=== PATIENT | female | born 1985 | race Caucasian/White ===

== ENCOUNTER → 2016-12-07 | Outpatient (CLI) | payer OTHER | END | disposition home or self-care (01) | LOC: LABWHC1 10:01 | PROVIDERS: ATTEND Obstetrics & Gynecology | DX: Z34.90 Encounter for supervision of normal pregnancy, unspecified, unspecified trimester (principal); Z3A.00 Weeks of gestation of pregnancy not specified | CPT/HCPCS: 36415; 84702 ==

== ENCOUNTER → 2017-05-03 | Outpatient (CLI) | payer OTHER ==
[2017-05-03 10:56] LABS: HCT 42.5 % (34.0-46.0); HGB 14.5 gm/dL (11.4-16.0); MCH 27.6 pg (25.0-35.0); MCHC 34.1 g/dL (31.0-37.0); Mean Platelet Volume 7.1; Platelet Count 327 k/uL (150-450); RBC 5.25 m/uL (3.80-5.40); RDW 12.6 % (11.5-15.5); WBC 7.9 k/uL (3.8-10.6)
[2017-05-03 11:19] LABS: Glucose 87 mg/dL (74-99)
--- NOTE | 2017-05-03 12:37 | US ---
EXAMINATION TYPE: US OB <= 14 wk fetus DATE OF EXAM: 05/03/2017 COMPARISON: NONE CLINICAL HISTORY: 31-year-old female Z36 confirm dates. early OB EXAM PERFORMED: OB TA FINDINGS: EXAM MEASUREMENTS: GESTATIONAL AGE / DATING Physician Established: (9 weeks/1 days) EDC: 12/05/2017 Dates by LMP: ( 9 weeks/1 days) EDC: 12/05/2017 Dates by First Scan: No previous this is first scan Dates by Current Scan for: (8 weeks/2 days (+/- 5 days) EDC: 12/11/2017 MATERNAL ANATOMY Uterus: 10.9 x 6.6 x 7.3cm Right Ovary: 2.3 x 1.7 x 1.1 Left Ovary: 2.7 x 2.6 x 1.9 Post CDS / Adnexa: wnl Presence of free fluid: no Presence of corpus luteal cyst: yes - left ovary = 2.1cm Presence of subchorionic bleed: no GESTATION / SURVEY CRL: 1.8 (8 weeks/2 days) MSD: wnl Yolk Sac (normal less than 6mm): 0.3 Heart Rate: 185 bpm, mildly elevated. Rhythm: Normal IUP: Viable IUP Date of LMP: 02/28/2017 Beta HcG (if available): not available IMPRESSION: 1. Single live intrauterine with estimated gestational age of 9 weeks 1 day by LMP. Current ultrasound biometry by crown-rump length is smaller and just barely discordant (8 weeks 2 days). 2. Given mild tachycardia, consider short interval follow-up. 3. Otherwise, complete survey recommended at 18-20 weeks.
== END | disposition home or self-care (01) ==
LOC: RADUSWWP 10:08
PROVIDERS: ATTEND Obstetrics & Gynecology
DX: O76 Abnormality in fetal heart rate and rhythm complicating labor and delivery (principal); Z3A.08 8 weeks gestation of pregnancy
CPT/HCPCS: 76801; 82565; 82947; 85027; 86762; 86780; 86850; 86900; 86901; 87340

== ENCOUNTER 2017-11-12 20:31 | Outpatient (CLI) | payer OTHER ==
[2017-11-12 22:54] VITALS: BP 113/64; PULSE 96; RESP 16; TEMP 97.4
--- NOTE | 2017-11-13 09:25 | P.MSEPDOC ---
Presenting Problems - Arrival Data Date of Arrival on Unit: 11/12/17 Time of Arrival on Unit: 20:31 Mode of Transport: Ambulatory - Complaint OB-Reason for Admission/Chief Complaint: Possible Onset of Labor Medical History - Information : 4 Para: 3 Term: 3 : 0 Abortions: Spontaneous or Elective: 0 Number of Living Children: 3 - Gestational Age Gestational Age by REYNALDO (wks/days): 36 Weeks and 5 Days Review of Systems - Review of Systems Constitutional: No problems Breast: No problems ENT: No problems Cardiovascular: No problems Respiratory: No problems Gastrointestinal: No problems Genitourinary: No problems Musculoskeletal: No problems Neurological: No problems Skin: No problems Vital Signs - Temperature Temperature: 97.4 F Temperature Source: Temporal Artery Scan - Pulse Right Brachial Pulse Rate: 96 Pulse Assessment Method: Automatic Cuff - Respirations Respiratory Rate: 16 Oxygen Delivery Method: Room Air - Blood Pressure Right Arm Blood Pressure: 113/64 Blood Pressure Mean: 80 Blood Pressure Source: Automatic Cuff Medical Screen Scoring (Pre) - Cervical Exam Dilation: 1-3 cm = 1 Membranes: Intact - Uterine Contractions Frequency: > 5 minutes apart = 1 Duration: N/A Intensity: N/A - Maternal Vital Signs Maternal Temperature: N/A Maternal Blood Pressure: N/A Signs of Preeclampsia: N/A Maternal Respirations: N/A - Pain Assessment Pain Location and Character: Abdomen Pain Scale Used: Numeric (1 - 10) Pain Intensity: 3 Pain Description: Cramping Pain Frequency: Intermittent Pain Duration Units: Minutes Pain Behavior: Facial Grimacing Pain Aggravating Factors: Contractions - Total Score Total Score (Pre): 2 - Level of Risk Level of Risk: Low (0-5) Physician Notification (Pre) - Physician Notified Physician Notified Date: 11/12/17 Physician Notified Time: 22:44 Physician/Practitioner Notifed:: Dr. Henriquez Spoke With: Dr. Henriquez New Order Received: Yes - Notification Comment Comment: Dr. Henriquez called and given report on pt in triage. Pt c/o. VS wnl. Vag exam of 260/-2 with no change after 2 hours. Reactive nst. Orders recieved to d/c pt to home. Disposition - Disposition OB Disposition: Discharge to home Discharge Date: 11/12/17 Discharge Time: 22:50 I agree with the RN Medical Screening Exam: Yes Risk & Benefit of care provided described in d/c instruction: Yes Diagnosis: FALSE LABOR BEFORE 37 COMPLETED WEEKS OF GEST, THIRD TRI
== END 2017-11-12 22:54 | disposition home or self-care (01) ==
LOC: FBPOP 20:31
PROVIDERS: ATTEND Obstetrics & Gynecology
DX: O47.03 False labor before 37 completed weeks of gestation, third trimester (principal); Z3A.36 36 weeks gestation of pregnancy
CPT/HCPCS: 59025; G0463; 99213

== ENCOUNTER 2017-11-29 06:10 | Inpatient (IN) | payer OTHER ==
[2017-11-29] MEDS ORDERED: LIDOCAINE 0.5% (PF) 5 MG/ML (50 ML SDV) SQ PRN (06:32)
[2017-11-29] MEDS ORDERED: OXYTOCIN 20 UNITS/1000 ML NS 1,000 ML IV SCH ×2 (06:32→12:49)
[2017-11-29] MEDS ORDERED: CARBOPROST TROMETHAMINE 250 MCG/ML 1 ML AMP IM PRN (06:32)
[2017-11-29] MEDS ORDERED: OXYTOCIN 10 UNIT/ML 1 ML VIAL IM PRN (06:32)
[2017-11-29] MEDS ORDERED: METHYLERGONOVINE 0.2 MG/ML 1 ML AMP IM PRN (06:32)
[2017-11-29] MEDS ORDERED: TERBUTALINE 1 MG/ML VIAL SQ PRN (06:32)
[2017-11-29 06:52] LABS: Basophils % (A) 0 %; Eosinophils # (A) 0.2 k/uL (0-0.7); Eosinophils % (A) 4 %; HCT 38.4 % (34.0-46.0); Lymphocytes # (A) 1.4 k/uL (1.0-4.8); Lymphocytes % (A) 26 %; MCH 28.1 pg (25.0-35.0); MCHC 33.7 g/dL (31.0-37.0); MCV 83.3 fL (80.0-100.0); Monocytes # (A) 0.2 k/uL (0-1.0); Monocytes % (A) 4 %; Neutrophils # (A) 3.5 k/uL (1.3-7.7); Neutrophils % (A) 64 %; Platelet Count 199 k/uL (150-450); RBC 4.61 m/uL (3.80-5.40); RDW 13.4 % (11.5-15.5); WBC 5.4 k/uL (3.8-10.6)
--- NOTE | 2017-11-29 06:52 | P.HPOB ---
History of Present Illness H&P Date: 11/29/17 Chief Complaint: Elective induction due to distance from the hospital This patient is a pleasant 32-year-old 7 para 3 female estimated date of confinement 12/05/2017 estimated gestational age 39-5/7 weeks' gestation is admitted to labor and delivery for elective induction of labor due to living long distance from the hospital. Patient's is complicated by bilateral choroid plexus cysts however she had a normal level III ultrasound and maternal medicine evaluation. These did resolve on her subsequent ultrasounds. Patient did have an her first and baby with Parker syndrome and did not want any genetic testing this . She has 3 other normal children. care otherwise has been uncomplicated. Review of Systems Gastrointestinal: Reports heartburn Genitourinary: Reports Menstruation: Reports amenorrhea Past Medical History Past Medical History: No Reported History History of Any Multi-Drug Resistant Organisms: None Reported Past Surgical History: No Surgical Hx Reported Past Anesthesia/Blood Transfusion Reactions: No Reported Reaction Past Psychological History: No Psychological Hx Reported Smoking Status: Never smoker Past Alcohol Use History: None Reported Past Drug Use History: None Reported - Past Family History Mother Family Medical History: No Reported History Medications and Allergies Home Medications Medication Instructions Recorded Confirmed Type Pnv,Calcium 72/Iron/Folic Acid 1 each PO DAILY 03/29/15 11/29/17 History [ Plus Tablet] Allergies Allergy/AdvReac Type Severity Reaction Status Date / Time No Known Allergies Allergy Verified 11/29/17 06:32 Exam Intake and Output 11/28/17 11/28/17 11/29/17 14:59 22:59 06:59 Other: Weight 67.585 kg - OBG Physical Exam Abdomen: bowel sounds normal, no diffuse tenderness, no bruit present, no guarding noted, no hepatomegaly, no splenomegaly, no mass Vulva: both: normal Vagina: normal moisture, no discharge Cervix: no lesion (Cervix is 3-4 cigarettes dilated 50% effaced -2 station.), no discharge Uterus: enlarged (Fundal height is consistent with gestational age) Results blood work shows she is O positive, rubella immune, RPR nonreactive, hepatitis B negative, Glucola was abnormal with a normal three-hour gtt., group B strep was negative, initial ultrasound showed bilateral choroid plexus cyst which resolved she's had normal level III ultrasound. Assessment and Plan Assessment: This is a pleasant 32-year-old 7 para 3 female 39-2/7 weeks gestation who is admitted to labor and delivery for elective induction of labor secondary to living long distance from the hospital and dilation. Patient has moderate meconium-stained fluid on rupture membranes as well. heart tones are reactive and reassuring. Plan is induction of labor and anticipate vaginal delivery. Alert the anesthesia staff as to the meconium status. Plan at this time is anticipate vaginal delivery. (1) Third trimester Current Visit: No Status: Acute Code(s): Z33.1 - STATE, INCIDENTAL SNOMED Code(s): 21573611 (2) Elective induction of labor planned Current Visit: Yes Status: Acute Code(s): QJA7470 - SNOMED Code(s): 717146698 (3) Meconium in amniotic fluid affecting management of mother Current Visit: Yes Status: Acute Code(s): O36.8990 - MATERNAL CARE FOR OTH PROBLEMS, UNSP TRIMESTER, UNSP SNOMED Code(s): 64826542
[2017-11-29] MEDS: LACTATED RINGERS 1,000 ML IV SCH ×2 (06:53→10:49)
[2017-11-29 07:24] VITALS: BMI 27.2
[2017-11-29] MEDS ORDERED: ROPIVACAINE 5MG/ML 20ML VIAL ONE (11:00)
[2017-11-29] MEDS ORDERED: SODIUM CHLORIDE 0.9% 100 ML BAG ONE (11:00)
[2017-11-29] MEDS ORDERED: fentaNYL (PF) 50 MCG/ML 5 ML AMP ONE (11:00)
--- NOTE | 2017-11-29 12:45 | P.PROBDLV ---
Vaginal Delivery Note - . Vaginal Delivery Note: Normal vaginal delivery viable male infant Apgars are 9 and 9 delivery time is 1215 hrs. Please see dictated H&P for intimate details of this patient's admission. Brief summary this pleasant 32-year-old 7 para 3 female 39 and one sevenths weeks gestation who is admitted to labor and delivery for induction of labor due to living long distance from the hospital. Patient is admitted she is 3 cm dilated has artificial rupture membranes for thick meconium fluid. heart tones are reassuring. Labor is induced with Pitocin per protocol. Patient does progress and gets an epidural for pain control. Patient quickly gets to complete pushes the head to the perineum. Posterior perineum was supported and we have controlled delivery of the infant's head over the intact perineum. There is a double nuchal cord which is easily reduced. With the anterior special shoulder then spontaneously delivers as well as the posterior shoulder and rest this 's body. This is a vigorous viable male Apgars are 9 and 9. Junior Web Designer was present for delivery and the baby did have spontaneous respiration. The umbilical cord is doubly clamped and cut at this time due to the patient's history of jaundice is not allowed to be delayed. It appears to be trivascular. Placenta spontaneously delivered intact inspection of perineum shows a first-degree perineal laceration repaired with 3-0 Vicryl usual fashion excellent reapproximation is noted. All counts are correct 3. There are no complications. Infant and mother stable delivery room.
[2017-11-29] MEDS ORDERED: LANOLIN CREAM 5 GM TUBE TOPICAL PRN (12:49)
[2017-11-29] MEDS ORDERED: ZOLPIDEM 5 MG TAB PO PRN (12:49)
[2017-11-29] MEDS ORDERED: WITCH HAZEL 1 EACH MED..PAD TOPICAL PRN (12:49)
[2017-11-29] MEDS ORDERED: SIMETHICONE 80 MG CHEWABLE PO PRN (12:49)
[2017-11-29] MEDS ORDERED: diphenhydrAMINE 25 MG CAP PO PRN (12:49)
[2017-11-29] MEDS ORDERED: BENZOCAINE/MENTHOL SPRAY 1 GM/SPRAY AEROSOL TOPICAL PRN (12:49)
[2017-11-29] MEDS ORDERED: diphenhydrAMINE 50 MG/ML 1 ML VIAL IVP PRN (12:49)
[2017-11-29] MEDS ORDERED: HYDROCORTISONE 2.5% RECTAL CREAM 30 GM TUBE RECTAL PRN (12:49)
[2017-11-29] MEDS ORDERED: BISACODYL 10 MG SUPP RECTAL PRN (12:49)
[2017-11-29] MEDS: IBUPROFEN 600 MG TAB PO PRN ×2 (13:03→19:34)
[2017-11-29] MEDS: SENNOSIDES-DOCUSATE SODIUM 1 EACH TAB PO SCH ×2 (14:40→19:34)
[2017-11-29] MEDS: ACETAMINOPHEN TAB 325 MG TAB PO PRN (22:54)
--- NOTE | 2017-11-30 06:51 | P.PNOBGVD ---
Subjective - Subjective Patient reports: Reports appetite normal, Reports voiding normally, Reports pain well controlled, Reports ambulating normally : doing well Objective - Latest Vital Signs Latest vital signs: Vital Signs Temp Pulse Resp BP 11/30/17 00:00 98.2 F 83 16 97/53 11/29/17 19:47 98.5 F 82 16 115/66 11/29/17 16:00 98 F 78 15 106/65 11/29/17 14:27 76 15 117/62 11/29/17 13:57 98 F 76 15 115/60 11/29/17 13:27 68 15 102/60 11/29/17 13:12 66 15 111/59 11/29/17 12:57 76 15 112/56 11/29/17 12:42 75 15 100/55 11/29/17 12:27 96.7 F L 80 15 110/58 11/29/17 07:21 97.5 F L 82 16 110/68 Intake and Output 11/29/17 11/29/17 11/30/17 14:59 22:59 06:59 Intake Total 800 Output Total 100 Balance -100 800 Intake: Intake, IV Titration 800 Amount Oxytocin 20 Units/1000 ml 800 Ns 1,000 ml @ Per Protocol IV .Q0M [facility] Rx#: [id number] Output: Estimated Blood Loss 100 Other: # Voids 2 1 Weight 67.585 kg - Exam Lungs: bilateral: normal Chest: Normal S1, Normal S2 Extremities: Present: normal Abdomen: Present: normal appearance, soft Uterus: Present: normal, firm Assessment and Plan Assessment: Post day #1. Patient is resting without complaints wishes to go home. Vital signs are stable and she is afebrile. Uterus is firm nontender she's having normal lochia. My impression this is a normal course. Plan is to continue routine care and discharge home later today. (1) Third trimester Current Visit: No Status: Acute Code(s): Z33.1 - STATE, INCIDENTAL SNOMED Code(s): 97393917 (2) Elective induction of labor planned Current Visit: Yes Status: Acute Code(s): YXT8703 - SNOMED Code(s): 434482767 (3) Meconium in amniotic fluid affecting management of mother Current Visit: Yes Status: Acute Code(s): O36.8990 - MATERNAL CARE FOR OTH PROBLEMS, UNSP TRIMESTER, UNSP SNOMED Code(s): 33154223
--- NOTE | 2017-11-30 06:55 | P.DS ---
Providers Date of admission: 11/29/17 06:10 Expected date of discharge: 11/30/17 Attending physician: Smooth Harris Primary care physician: Stated None - Discharge Diagnosis(es) (1) Third trimester Current Visit: No Status: Acute (2) Elective induction of labor planned Current Visit: Yes Status: Acute (3) Meconium in amniotic fluid affecting management of mother Current Visit: Yes Status: Acute Hospital Course: Please see dictated H&P for intimate details of this patient's admission. Brief summary this is a pleasant 32-year-old 7 para 3 female 39 and one sevenths weeks gestation admitted to labor and delivery for requested induction of labor. Patient is uncomplicated induction of labor quickly goes on have a vaginal delivery viable male infant. Please see dictated delivery note. day #1 patient's felt be stable for discharge home follow up with me in 6 weeks. Procedures: Induction of labor and normal vaginal delivery Patient Condition at Discharge: Good Plan - Discharge Summary New Discharge Prescriptions: New Ibuprofen [Motrin] 600 mg PO Q6HR PRN #40 tab PRN Reason: Mild Pain Or Fever >= 100.5 No Action Pnv,Calcium 72/Iron/Folic Acid [ Plus Tablet] 1 each PO DAILY Discharge Medication List Pnv,Calcium 72/Iron/Folic Acid [ Plus Tablet] 1 each PO DAILY 03/29/15 [ History] Ibuprofen [Motrin] 600 mg PO Q6HR PRN #40 tab 11/30/17 [Rx] Follow up Appointment(s)/Referral(s): Smooth Harris MD [STAFF PHYSICIAN] - 01/10/18 11:15 am Patient Instructions/Handouts: Vaginal Delivery (DC) Activity/Diet/Wound Care/Special Instructions: No intercourse or anything per vagina for 6 weeks. Please call if any fever, chills, excessive vaginal bleeding, and/or abdominal pain. Discharge Disposition: HOME SELF-CARE
[2017-11-30] MEDS: SENNOSIDES-DOCUSATE SODIUM 1 EACH TAB PO SCH ×2 (10:37→21:08)
[2017-11-30] MEDS: IBUPROFEN 600 MG TAB PO PRN ×2 (10:45→17:26)
[2017-11-30] MEDS: ACETAMINOPHEN TAB 325 MG TAB PO PRN (21:11)
--- NOTE | 2017-12-01 06:27 | P.PNOBGVD ---
Subjective - Subjective Patient reports: Reports appetite normal, Reports voiding normally, Reports pain well controlled, Reports ambulating normally : doing well Objective - Latest Vital Signs Latest vital signs: Vital Signs Temp Pulse Resp BP 12/01/17 00:00 98 F 72 15 108/72 11/30/17 15:30 98.6 F 73 16 108/68 11/30/17 08:15 98.5 F 90 16 91/51 Intake and Output 11/30/17 11/30/17 12/01/17 14:59 22:59 06:59 Other: # Voids 1 1 1 - Exam Lungs: bilateral: normal Chest: Normal S1, Normal S2 Extremities: Present: normal Abdomen: Present: normal appearance, soft Uterus: Present: normal, firm Assessment and Plan Assessment: day #2. Patient elected to stay yesterday is baby's bilirubin was elevated. Vital signs are stable she is afebrile. Uterus is firm nontender and she is having normal lochia. My impression this is a normal course. Plan is to continue routine care discharge home later today. (1) Third trimester Current Visit: No Status: Acute Code(s): Z33.1 - STATE, INCIDENTAL SNOMED Code(s): 62328592 (2) Elective induction of labor planned Current Visit: Yes Status: Acute Code(s): UFI9207 - SNOMED Code(s): 010944367 (3) Meconium in amniotic fluid affecting management of mother Current Visit: Yes Status: Acute Code(s): O36.8990 - MATERNAL CARE FOR OTH PROBLEMS, UNSP TRIMESTER, UNSP SNOMED Code(s): 31901659
[2017-12-01 10:14] VITALS: RESP 18
[2017-12-01] MEDS: SENNOSIDES-DOCUSATE SODIUM 1 EACH TAB PO SCH ×2 (10:15→21:03)
[2017-12-01 17:15] VITALS: BP 115/69; PULSE 79; TEMP 98.1
[2017-12-01] MEDS: IBUPROFEN 600 MG TAB PO PRN (19:44)
== END 2017-12-01 23:00 | disposition home or self-care (01) | DRG 807 ==
LOC: 4FBP 06:10
PROVIDERS: ADMIT Obstetrics & Gynecology; ATTEND Obstetrics & Gynecology
PROC: 10E0XZZ Delivery of Products of Conception, External Approach (ICD-10-PCS; principal; 2017-11-29)
PROC: 0HQ9XZZ Repair Perineum Skin, External Approach (ICD-10-PCS; 2017-11-29)
PROC: 00HU33Z Insertion of Infusion Device into Spinal Canal, Percutaneous Approach (ICD-10-PCS; 2017-11-29)
PROC: 3E0R3BZ Introduction of Anesthetic Agent into Spinal Canal, Percutaneous Approach (ICD-10-PCS; 2017-11-29)
PROC: 3E033VJ Introduction of Other Hormone into Peripheral Vein, Percutaneous Approach (ICD-10-PCS; 2017-11-29)
PROC: 10907ZC Drainage of Amniotic Fluid, Therapeutic from Products of Conception, Via Natural or Artificial Opening (ICD-10-PCS; 2017-11-29)
DX: O77.0 Labor and delivery complicated by meconium in amniotic fluid (principal); Z37.0 Single live birth; O69.81X0 Labor and delivery complicated by cord around neck, without compression, not applicable or unspecified; O70.0 First degree perineal laceration during delivery; Z3A.39 39 weeks gestation of pregnancy
CPT/HCPCS: 85025; 86850; 86900; 86901; 88307

== ENCOUNTER 2019-12-31 06:00 | Inpatient (IN) | payer OTHER ==
[2019-12-31] MEDS ORDERED: OXYTOCIN 10 UNIT/ML 1 ML VIAL IM PRN (06:23)
[2019-12-31] MEDS ORDERED: TERBUTALINE 1 MG/ML VIAL SQ PRN (06:23)
[2019-12-31] MEDS ORDERED: OXYTOCIN 30 UNITS/500 ML NS 30 UNIT in SALINE 1 500ML.BAG IV SCH (06:23)
[2019-12-31] MEDS ORDERED: LIDOCAINE 0.5% (PF) 5 MG/ML (50 ML SDV) SQ PRN (06:23)
[2019-12-31] MEDS ORDERED: METHYLERGONOVINE 0.2 MG/ML 1 ML AMP IM PRN (06:23)
[2019-12-31] MEDS ORDERED: CARBOPROST TROMETHAMINE 250 MCG/ML 1 ML AMP IM PRN (06:23)
--- NOTE | 2019-12-31 06:25 | P.HPOB ---
History of Present Illness H&P Date: 12/31/19 Chief Complaint: Requested induction of labor This patient is a pleasant 34-year-old 8 para 4 female estimated date of confinement 01/07/2020 estimated gestational age 39 weeks who presents to labor and delivery for requested induction of labor. Patient does live a long distance from hospital does have a history of fast labors. care has been uncomplicated. Patient does have a history of previous child with Parker syndrome however has declined genetic testing this . testing otherwise has been normal. Review of Systems Genitourinary: Reports Menstruation: Reports amenorrhea Past Medical History Past Medical History: No Reported History History of Any Multi-Drug Resistant Organisms: None Reported Past Surgical History: No Surgical Hx Reported Past Anesthesia/Blood Transfusion Reactions: No Reported Reaction Past Psychological History: No Psychological Hx Reported Past Alcohol Use History: None Reported Past Drug Use History: None Reported - Past Family History Mother Family Medical History: No Reported History Medications and Allergies Home Medications Medication Instructions Recorded Confirmed Type Pnv,Calcium 72/Iron/Folic Acid 1 each PO DAILY 03/29/15 11/29/17 History [ Plus Tablet] Ibuprofen [Motrin] 600 mg PO Q6HR PRN #40 tab 11/30/17 Rx Allergies Allergy/AdvReac Type Severity Reaction Status Date / Time No Known Allergies Allergy Verified 11/29/17 06:32 Exam - OBG Physical Exam Abdomen: bowel sounds normal, no diffuse tenderness, no bruit present, no guarding noted, no hepatomegaly, no splenomegaly, no mass Vulva: both: normal Vagina: normal moisture, no discharge Cervix: no lesion (The office patient was 2 cm dilated.), no discharge Uterus: enlarged (Fundal height consistent with gestational age) Results blood work shows she is O positive, rubella immune, RPR is nonreactive, hepatitis B was negative, Glucola was was abnormal with a normal three-hour gtt. Group B strep was negative. Ultrasounds have been normal. Assessment and Plan Assessment: This is a pleasant 34-year-old 8 para 4 female 39-0/7 weeks gestation admitted to labor and delivery for requested induction of labor. Plan is induction of labor and anticipate vaginal delivery. (1) 39 weeks gestation of Current Visit: Yes Status: Acute Code(s): Z3A.39 - 39 WEEKS GESTATION OF SNOMED Code(s): 41224527 (2) Elective induction of labor planned Current Visit: No Status: Acute Code(s): ZRQ9455 - SNOMED Code(s): 555255233
[2019-12-31] MEDS: LACTATED RINGERS 1,000 ML IV SCH ×2 (06:31→10:44)
[2019-12-31 06:43] LABS: Basophils % (A) 0 %; Eosinophils # (A) 0.1 k/uL (0-0.7); Eosinophils % (A) 2 %; HCT 40.5 % (34.0-46.0); Lymphocytes # (A) 1.5 k/uL (1.0-4.8); Lymphocytes % (A) 24 %; MCH 27.8 pg (25.0-35.0); MCHC 32.2 g/dL (31.0-37.0); MCV 86.4 fL (80.0-100.0); Monocytes # (A) 0.3 k/uL (0-1.0); Monocytes % (A) 5 %; Neutrophils # (A) 4.2 k/uL (1.3-7.7); Neutrophils % (A) 67 %; Platelet Count 203 k/uL (150-450); RBC 4.69 m/uL (3.80-5.40); RDW 13.9 % (11.5-15.5); WBC 6.2 k/uL (3.8-10.6)
[2019-12-31] MEDS ORDERED: PRENATAL VIT-IRON-FOLIC ACID 1 EACH CAP PO SCH (09:00)
[2019-12-31] MEDS ORDERED: fentaNYL (PF) 50 MCG/ML 5 ML AMP ONE (10:25)
[2019-12-31] MEDS ORDERED: SODIUM CHLORIDE 0.9% 100 ML BAG ONE (10:25)
[2019-12-31] MEDS ORDERED: ROPIVACAINE 5MG/ML 20ML VIAL ONE (10:25)
[2019-12-31] MEDS ORDERED: ROPIVACAINE 100 MG, fentaNYL (PF) 200 MCG in SODIUM CHLORIDE 0.9% 76 ML EPIDURAL ONE (10:53)
--- NOTE | 2019-12-31 12:32 | P.PROBDLV ---
Vaginal Delivery Note - . Vaginal Delivery Note: Normal vaginal delivery viable male infant Apgars 9 and 9 delivery time was 1214 hrs. Please see dictated H&P for intimate details of this patient's admission. Brief summary is a pleasant 34-year-old 8 para 4 female 39-0/7 weeks gestation who is admitted to labor and delivery for requested induction of labor. On admission patient is 3-4 cm dilated has artificial rupture membranes for clear fluid. Labor is induced with Pitocin per protocol. Patient progresses and does get an epidural for pain control. Patient quickly thereafter gets to complete. At this time she states she has an urge to push and was found to be at +2 station. At this time and encouraged her to push gently and she has spontaneous delivery of infant's head over the intact perineum. Was right occiput anterior presentation. Bulb suction is then done of the mouth and nares. There is no evidence of a nuchal cord. With barely any effort we have delivery the anterior and posterior shoulder and rest this infant's body. This is a vigorous viable male Apgars 9 and 9 delivery time is 1214 hrs. After delivery of the the umbilical cord is doubly clamped and cut. Due to history of jaundice, this was not delayed. The placenta is then spontaneously delivered intact. Inspection of perineum shows a superficial posterior laceration does not require repair. All counts are correct 3. There are no complications. and mother stable delivery room.
[2019-12-31] MEDS ORDERED: BENZOCAINE/MENTHOL SPRAY 1 GM/SPRAY AEROSOL TOPICAL PRN (12:39)
[2019-12-31] MEDS ORDERED: ACETAMINOPHEN TAB 325 MG TAB PO PRN (12:39)
[2019-12-31] MEDS ORDERED: bisacodyL 10 MG SUPP RECTAL PRN (12:39)
[2019-12-31] MEDS ORDERED: OXYTOCIN 20 UNITS/1000 ML NS 1,000 ML IV SCH (12:39)
[2019-12-31] MEDS ORDERED: diphenhydrAMINE 25 MG CAP PO PRN (12:39)
[2019-12-31] MEDS ORDERED: ZOLPIDEM 5 MG TAB PO PRN (12:39)
[2019-12-31] MEDS ORDERED: SIMETHICONE 80 MG CHEWABLE PO PRN (12:39)
[2019-12-31] MEDS ORDERED: HYDROCORTISONE 2.5% RECTAL CREAM 30 GM TUBE RECTAL PRN (12:39)
[2019-12-31] MEDS ORDERED: LANOLIN CREAM 5 GM TUBE TOPICAL PRN (12:39)
[2019-12-31] MEDS ORDERED: diphenhydrAMINE 50 MG/ML 1 ML VIAL IVP PRN (12:39)
[2019-12-31] MEDS: SENNOSIDES-DOCUSATE SODIUM 1 EACH TAB PO SCH ×2 (12:51→20:35)
[2019-12-31 15:09] VITALS: RESP 16
[2019-12-31] MEDS: IBUPROFEN 600 MG TAB PO PRN (22:50)
--- NOTE | 2020-01-01 06:37 | P.PNOBGVD ---
Subjective - Subjective Patient reports: Reports appetite normal, Reports voiding normally, Reports pain well controlled, Reports ambulating normally : doing well Objective - Latest Vital Signs Latest vital signs: Vital Signs Temp Pulse Resp BP Pulse Ox 01/01/20 00:00 98.4 F 73 16 112/65 12/31/19 20:00 97.8 F 83 16 111/78 98 12/31/19 14:38 74 16 105/60 12/31/19 14:08 98.6 F 83 17 97/53 12/31/19 13:36 84 17 105/62 12/31/19 13:22 73 16 111/63 12/31/19 13:06 73 17 122/72 12/31/19 12:52 81 16 118/74 12/31/19 12:37 98.3 F 82 16 114/82 Intake and Output 12/31/19 12/31/19 01/01/20 14:59 22:59 06:59 Other: # Voids 1 1 Weight 70.76 kg - Exam Lungs: bilateral: normal Chest: Normal S1, Normal S2 Extremities: Present: normal Abdomen: Present: normal appearance, soft Uterus: Present: normal, firm Assessment and Plan Assessment: day #1. Patient is resting without complaints and wishes to go home. Vital signs are stable she's afebrile. Uterus is firm nontender she's having normal lochia. My impression this is a normal course. Plan is to continue routine care discharge home later today (1) 39 weeks gestation of Current Visit: Yes Status: Acute Code(s): Z3A.39 - 39 WEEKS GESTATION OF SNOMED Code(s): 59149685 (2) Elective induction of labor planned Current Visit: No Status: Acute Code(s): PHG5117 - SNOMED Code(s): 626205708
--- NOTE | 2020-01-01 06:40 | P.DS ---
Providers Date of admission: 12/31/19 06:05 Expected date of discharge: 01/01/20 Attending physician: Smooth Harris Primary care physician: Stated None - Discharge Diagnosis(es) (1) 39 weeks gestation of Current Visit: Yes Status: Acute (2) Elective induction of labor planned Current Visit: No Status: Acute Hospital Course: Please see dictated H&P for intimate details of this patient's admission. Brief summary this pleasant 34-year-old 8 para 4 female 39 weeks gestation admitted to labor and delivery for requested induction of labor. Patient is admitted quickly was on have a vaginal delivery viable male . Please see dictated delivery note. day #1 patient is doing well wishes to go home. Patient's felt to be stable for discharge home follow up with me in 6 weeks. Procedures: Induction of labor and normal vaginal delivery Patient Condition at Discharge: Good Plan - Discharge Summary New Discharge Prescriptions: New Ibuprofen [Motrin] 600 mg PO Q6HR PRN #40 tab PRN Reason: Mild Pain Or Fever >= 100.5 No Action Pnv,Calcium 72/Iron/Folic Acid [ Plus Tablet] 1 each PO DAILY Discharge Medication List Pnv,Calcium 72/Iron/Folic Acid [ Plus Tablet] 1 each PO DAILY 03/29/15 [History] Ibuprofen [Motrin] 600 mg PO Q6HR PRN #40 tab 01/01/20 [Rx] Follow up Appointment(s)/Referral(s): Smooth Harris MD [STAFF PHYSICIAN] - 02/14/20 9:15 am Patient Instructions/Handouts: Vaginal Delivery (DC) Activity/Diet/Wound Care/Special Instructions: No intercourse or anything per vagina for 6 weeks. Please call if any fever, chills, excessive vaginal bleeding, and/or abdominal pain Discharge Disposition: HOME SELF-CARE
[2020-01-01] MEDS: IBUPROFEN 600 MG TAB PO PRN (07:39)
[2020-01-01] MEDS: SENNOSIDES-DOCUSATE SODIUM 1 EACH TAB PO SCH (07:44)
[2020-01-01 12:53] VITALS: BP 106/70; PULSE 82; TEMP 98.6
== END 2020-01-01 14:45 | disposition home or self-care (01) | DRG 807 ==
LOC: 4FBP 06:05
PROVIDERS: ADMIT Obstetrics & Gynecology; ATTEND Obstetrics & Gynecology
PROC: 10907ZC Drainage of Amniotic Fluid, Therapeutic from Products of Conception, Via Natural or Artificial Opening (ICD-10-PCS; principal; 2019-12-31)
PROC: 10E0XZZ Delivery of Products of Conception, External Approach (ICD-10-PCS; principal; 2019-12-31)
DX: O70.9 Perineal laceration during delivery, unspecified (principal); Z37.0 Single live birth; Z3A.39 39 weeks gestation of pregnancy
CPT/HCPCS: 85025; 86850; 86900; 86901

== ENCOUNTER → 2022-07-08 | Outpatient (CLI) | payer OTHER ==
--- NOTE | 2022-07-08 09:39 | MM ---
Reason for Exam: Clinical finding. Baseline mammogram. Patient History: Menarche at age 11. First Full-Term at age 23. Mother had breast cancer at or over age 50. Last menstrual period: 07/02/2022 Risk Values: Gaby 5 year model risk: 0.7%. NCI Lifetime model risk: 20.3%. Prior Study Comparison: Patient's first Mammogram. No prior studies available for comparison. Tissue Density: The breast tissue is heterogeneously dense. This may lower the sensitivity of mammography. Findings: Analyzed By CAD. Questionable small area of outer asymmetric density left cc view middle depth does not persist on spot 3-D images. No significant mass, suspicious microcalcification, or other discrete abnormality is seen. Overall Assessment: Incomplete: need additional imaging evaluation, BI-RAD 0 Management: Diagnostic Breast Ultrasound of the left breast. For intermittent fullness and given patient's overall lifetime risk. Electronically signed and approved by: Iman Lopes M.D. Radiologist
--- NOTE | 2022-07-08 09:41 | USB ---
Reason for Exam: Clinical finding. Patient History: Menarche at age 11. First Full-Term at age 23. Mother had breast cancer at or over age 50. Risk Values: Gaby 5 year model risk: 0.7%. NCI Lifetime model risk: 20.3%. Technique: Method: Whole Breast Handheld. Findings: The whole breast of the left breast, the axilla of the left breast and the retroareolar of the left breast were scanned. A complete US of all four quadrants of the breast, axilla, and retro-areolar region were reviewed. No solid or cystic masses are identified. Dense tissues present throughout. Mild benign duct ectasia noted. Overall Assessment: Negative, BI-RAD 1 Management: Screening Mammogram of both breasts at age 40. 1. Unless there is a clinical indication to start sooner. 2. Patient should continue monthly self-breast exams. A clinical breast exam by your physician is recommended on an annual basis. 3. This exam should not preclude additional follow-up of suspicious palpable abnormalities. Note on lifetime risk: If overall lifetime risk for the development of breast cancer is 20% or higher, the patient may qualify for future screening with alternating mammogram and breast MRI. Results were given to the patient verbally at the time of exam. Electronically signed and approved by: Iman Lopes M.D. Radiologist
== END | disposition home or self-care (01) ==
LOC: RADMAMWWP 08:31
PROVIDERS: ATTEND Obstetrics & Gynecology
DX: N64.4 Mastodynia (principal); Z80.3 Family history of malignant neoplasm of breast
CPT/HCPCS: 77062; 77066